=== PATIENT | male | born 1945 | race African-American/Black ===

== ENCOUNTER 2018-08-13 11:56 | Emergency (ER) | payer OTHER ==
[2018-08-13] MEDS ORDERED: Ibuprofen 800 MG TAB ONE (12:41)
== END 2018-08-13 12:46 | disposition home or self-care (01) ==
LOC: ERS 11:56
DX: K40.90 Unilateral inguinal hernia, without obstruction or gangrene, not specified as recurrent (principal); I10 Essential (primary) hypertension; F17.210 Nicotine dependence, cigarettes, uncomplicated; Z79.899 Other long term (current) drug therapy
CPT/HCPCS: 99283

== ENCOUNTER 2018-10-15 15:12 | Observation (INO) | payer MEDICARE, MEDICAID ==
[~2018-10-15 15:12] MED LIST: ISOVUE-370 76%-LOCM 1 ML ONE
--- NOTE | 2018-10-15 15:31 | RAD ---
EXAM: Single view of the chest HISTORY: Chest pain COMPARISON: None FINDINGS: Single view of the chest shows a normal sized cardiomediastinal silhouette. There is no kennedy dence of consolidation, mass, or pleural effusion. The bones are unremarkable. IMPRESSION: No evidence of acute cardiopulmonary disease
[2018-10-15 15:59] LABS: #Eosinphils 0.2 thou/uL (0.0-0.7); #Lymphocytes 2.7 thou/uL (1.20-3.40); #Monocytes 0.7 thou/uL (0.11-0.59); #Neutrophils 3.4 thou/uL (1.40-6.50); %Basophils 0.7 % (0.0-1.0); %Eosinophils 3.2 % (0.0-10.0); %Lymphocytes 37.7 % (21.0-51.0); %Monocytes 10.1 % (0.0-10.0); %Neutrophils 48.4 % (42.0-75.0); Hemoglobin 12.8 g/dL (14.0-18.0); Mean Corpuscular HGB CONC 31.3 g/dL (32.0-36.0); Mean Corpuscular Volume 95.8 fL (78.0-98.0); Mean Platelet Volume 7.8 fL (7.4-10.4); Platelet Count 206 thou/uL (130-400); RBC Distribution Width 12.6 % (11.5-14.5); Red Blood Cell (RBC) Count 4.27 mill/uL (4.70-6.10)
[2018-10-15 16:26] LABS: ALT (SGPT) 18 U/L (8-55); AST (SGOT) 23 U/L (5-34); Albumin 4.7 g/dL (3.4-4.8); Alkaline Phosphatase 77 U/L (40-150); Anion Gap 13 mmol/L (10-20); BUN (Urea Nitrogen) 13 mg/dL (8.4-25.7); Bilirubin, Total 0.8 mg/dL (0.2-1.2); CK (CPK) 264 U/L (30-200); Calc. Creatinine Clearance 0 mL/min (70-130); Calcium 9.8 mg/dL (7.8-10.44); Carbon Dioxide 23 mmol/L (23-31); Chloride 108 mmol/L (98-107); Estimated GFR-MDRD 90; Globulin 2.8 g/dL (2.4-3.5); Glucose 93 mg/dL (83-110); Potassium 4.3 mmol/L (3.5-5.1); Protein, Total 7.5 g/dL (5.8-8.1); Sodium 140 mmol/L (136-145)
[2018-10-15 18:10] LABS: INR-International Normal Ratio 1.1
[2018-10-15 18:11] LABS: PTT 33.3 SEC (22.9-36.1)
[2018-10-15 18:12] LABS: D-Dimer Test 0.45 *mcg/mL (0.27-0.43)
[2018-10-15] MEDS ORDERED: Aspirin Chewable 81 MG TAB ONE (19:47)
[2018-10-15 21:06] LABS: Bilirubin Negative (Negative); Blood, Urine Trace (Negative); Clarity CLOUDY (Clear); Glucose, Urine (Dipstick) Negative (Negative); Leukocyte Small (Negative); Nitrite Positive (Negative); Protein, Urine (Dipstick) Negative (Neg-Trace); Specific Gravity, Urine 1.016 (1.002-1.036); pH, Urine 6.5 (5.0-9.0)
--- NOTE | 2018-10-15 21:07 | CT ---
CTA Angio Chest W WO Con History: Substernal chest pain Comparison: Radiograph same day Findings: CT angiogram chest performed after the intravenous ministration of contrast. 3-D rendering provided. No proximal segmental pulmonary arterial filling defect. Pulmonary trunk size is normal. No pericardi al effusion. Aortic contour is normal. Mild narrowing of the ostia of the celiac trunk. Superior mesenteric artery is patent. There are multiple bilateral renal hypodensities, incompletely evaluated. There is hypertrophy of bot h adrenal glands with a left adrenal adenoma. Mild centrilobular emphysema. No pneumothorax. No effusion. Sternum and manubrium are intact. Remote left eighth and ninth rib fracture. Impression: 1. No pulmonary embolus. 2. Mild emphysema. 3. Multiple renal bilateral hypodensities incompletely evaluated. Nonemergent follow-up ultrasound re commended. 4. No evidence for pneumonia. 5. Adrenal hyperplasia with left adrenal adenoma.
[2018-10-15 21:08] LABS: Bacteria/HPF 4+ HPF (None Seen); Hyaline Casts/LPF 4-6 HYALINE CAST LPF (0-3 Hyaline); Pathc Cast-AUWi Flag 0.27 (0-2.49); RBC/HPF 0-3 HPF (0-3); Squamous Epithelial None Seen HPF (0-3); WBC/HPF 21-50 HPF (0-3)
[2018-10-15] MEDS ORDERED: cefTRIAXone\\ROCEPHIN 1 GM VIAL ONE (22:59)
[2018-10-15 23:18] LABS: Troponin I Less than 0.010 ng/mL (< 0.028)
[2018-10-16] MEDS ORDERED: Ondansetron ODT 4 MG TAB SL PRN (00:20)
[2018-10-16] MEDS ORDERED: Ondansetron PF 4 MG/2 ML Vial IVP PRN (00:20)
[2018-10-16] MEDS ORDERED: Acetaminophen 325 MG TAB PO PRN ×2 (00:20→08:32)
[2018-10-16] MEDS ORDERED: Sodium Chloride 0.9% 1,000 ML IV SCH (00:20)
[2018-10-16 00:28] VITALS: BMI 21.9
[2018-10-16 02:36] LABS: Troponin I Less than 0.010 ng/mL (< 0.028)
[2018-10-16] MEDS ORDERED: Nitroglycerin 0.4 MG TAB (25 Tab Bottle) PO PRN (08:25)
[2018-10-16] MEDS ORDERED: traMADol HCl 50 MG TAB PO PRN (08:31)
[2018-10-16] MEDS ORDERED: hydrALAZINE 20 MG/ML VIAL SLOW IVP PRN (08:32)
--- NOTE | 2018-10-16 12:27 | EKG ---
Test Reason : Blood Pressure : / mmHG Vent. Rate : 072 BPM Atrial Rate : 072 BPM P-R Int : 126 ms QRS Dur : 080 ms QT Int : 396 ms P-R-T Axes : 072 006 034 degrees QTc Int : 433 ms Normal sinus rhythm Possible Left atrial enlargement Septal infarct , age undetermined Abnormal ECG Confirmed by PEGGY FERNANDEZ ([id number]), newspaper or periodical editor PAMELA RODRIGUEZ ([id number]) on 10/16/2018 12:27:01 PM Referred By: Confirmed By:PEGGY FERNANDEZ
--- NOTE | 2018-10-16 12:54 | NM ---
EXAM: NM Cardiac Stress W EF WF PROVIDED CLINICAL HISTORY: Chest pain COMPARISON: None RADIOPHARMACEUTICAL: 33 millicuries technetium 99m labeled sestamibi IV stress 11 millicuries technetium 99m labeled sestamibi IV rest FINDINGS: There is normal, homogeneous distribution of radiotracer throughout the left ventricular myocardium. Gated data demonstrate normal myocardial wall motion and thickening with calculated LVEF 63%. Calculated TID is 1.01. IMPRESSION: 1. No scintigraphic evidence for ischemia. 2. Calculated LVEF 63%.
[2018-10-16] MEDS ORDERED: Rivaroxaban 10 MG TAB PO SCH (13:00)
[2018-10-16 15:50] VITALS: BP 117/59; TEMP 98.3
[2018-10-16] MEDS ORDERED: cefTRIAXone\\ROCEPHIN 1 GM in Sodium Chloride 0.9% 100 ML IVPB SCH (23:00)
--- NOTE | 2018-10-17 07:09 | PDOC.EVN ---
Event Note - Event Note Event Note: H&P dictated on 10/16
--- NOTE | 2018-10-17 15:09 | SS ---
DATE OF ADMISSION: 10/15/2018 DATE OF DISCHARGE: 10/16/2018 PRIMARY CARE: The patient recently moved to [place] from [place]. He is planning to see [facility]. CHIEF COMPLAINT: Chest discomfort. HISTORY OF PRESENT ILLNESS: The patient is a 73-year-old male with hypertension , recent right lower extremity DVT, on Xarelto and ongoing tobacco abuse, presented to the emergency room with above complaints. Over the last 2 days, the patient has left-sided chest discomfort associated with diaphoresis, shortness of breath, and lightheadedness. The pain is intermittent , stabbing without any aggravating or relieving factor. He denies recent immobilization or travel. He is compliant with Xarelto. He denies any orthopnea, paroxysmal nocturnal dyspnea, or leg swelling. No fever or chills reported. He has occasional, which has not changed recently. He also takes NSAIDs on the daily basis. In the emergency room, his EKG showed sinus rhythm without significant ST-T wave changes. CT angiogram of the chest was negative for pulmonary embolism. He received aspirin with 1 g Rocephin in the emergency room for UTI. PAST MEDICAL HISTORY: 1. Hypertension. 2. Right lower extremity DVT, diagnosed 2 months ago, on Xarelto. 3. Ongoing tobacco abuse. PAST SURGICAL HISTORY: 1. Hernia surgery x2. 2. Left rotator cuff surgery. 3. Right cataract surgery. 4. Appendectomy. ALLERGIES: NO KNOWN DRUG ALLERGIES. CURRENT HOME MEDICATIONS: 1. Ibuprofen as needed. 2. Toprol-XL 50 mg daily. 3. Xarelto 10 mg daily. 4. Tramadol as needed. SOCIAL HISTORY: The patient smokes up to 6 cigarettes a day. No drug use. He drinks alcohol socially. FAMILY HISTORY: Mother had unknown cancer. He is unable to recall any heart disease in his family. REVIEW OF SYSTEMS: All other review of systems was reviewed and were found negative. PHYSICAL EXAMINATION: VITAL SIGNS: Temperature 98.9, respirations of 18, blood pressure 123/59, pulse rate of 71, and O2 saturation 99% on room air. GENERAL: A 73-year-old male, in no apparent distress. No chest pain at this time. HEENT: Head; atraumatic and normocephalic. Sclerae are anicteric. Moist mucous membranes. No oral lesion. NECK: Supple. No JVD appreciated. No carotid bruit. LUNGS: Clear to auscultation bilaterally. No wheezing, rales, or rhonchi. HEART: S1 and S2 present. Regular rate and rhythm. No heaves or pulsation. There is questionable 2/6 systolic murmur over the mitral area. ABDOMEN: Soft and nontender. Bowel sounds present. No rebound or guarding. No costovertebral angle tenderness. EXTREMITIES: No edema or calf tenderness. NEUROLOGIC: Grossly nonfocal. Moves all 4 extremities. PSYCHIATRY: Alert, awake, and oriented x3. Normal affect. PERIPHERAL VASCULAR: Radial pulses palpable bilaterally. MUSCULOSKELETAL: No joint swelling or tenderness. LABORATORY FINDINGS: Troponin was negative. Hemoglobin 12.8, hematocrit 40.9. Urinalysis showed 21 to 50 wbc's with 4+ bacteria. BUN 13, creatinine 0.98. CT angiogram of the chest by my review was negative for pulmonary embolism. It showed mild renal bilateral hypodensity, incompletely evaluated. Followup ultrasound is recommended. He also had adrenal hyperplasia with left adrenal adenoma. Chest x-ray by my review was negative for infiltrate or edema. EKG by my review was negative for ST-T wave changes. It showed normal sinus rhythm. IMPRESSION: 1. Chest discomfort, rule out acute coronary syndrome. 2. Exertional dyspnea over the past 2 months per the patient report. 3. Ongoing tobacco abuse. 4. Hypertension. 5. Chronic mild anemia. 6. Urinary tract infection. 7. Adrenal hyperplasia with left adrenal adenoma. Primary care physician advised to follow. 8. Multiple renal bilateral hypodensities. Renal ultrasound as outpatient is recommended. PLAN: The patient will be monitored in the telemetry unit. Serial troponins have been negative. His chest pain is somewhat suspicious for coronary artery disease. His CT chest showed some changes of emphysema as well. Tobacco cessation was emphasized. PPIs will be added. Due to intermediate probability for coronary artery disease, we will get a Cardiolite stress test done during this hospitalization. It would be resumed after the stress test. We will continue Toprol-XL from this afternoon. Lifestyle modification was emphasized. He was advised to follow up with his primary care for renal ultrasound as well as further workup for adrenal hyperplasia and left adrenal adenoma. Urine culture will be added. IV ceftriaxone will be started. Plan of care was discussed with the patient in detail. He stated understanding. The patient will be stable for discharge if the stress test is negative. He will follow up with his primary care physician on urine cultures. Antibiotics will be switched to oral. He was advised to discontinue NSAIDs. UPDATE: Patient underwent stress test that was negative for reversible ischemia. He was discharged on oral antibiotics. GI follow up requested. Tobacco cessation was emphasized. Job ID: [id number] [facility]
--- NOTE | 2018-10-18 11:35 | STRESS ---
Acquisition Time: 2018-10-16 10:55:43 Total Exercise Time: 00:08:59 Test Indications: CHEST PAIN Medications: Protocol: CADENCE Max HR: 136 BPM 93% of Pred: 145 BPM Max BP: 164/080 mmHG Max Work Load: 10.1 METS RESTING ECG: NORMAL SINUS RHYTHM SYMPTOMS: DYSPNEA ON EXERTION NORMAL BP RESPONSE ECTOPY: NONE ECG STRESS: NO SIGNIFICANT CHANGES INTERPRETATION: NEGATIVE GXT/AWAIT NUCLEAR IMAGES FOR DEFINITIVE DIAGNOSIS COMMENTS: EXERCISED FOR 8 MINUTES, [id number] Confirmed by DIOGENES AYERS ([id number]), editor managing director OLESYA GAY ([id number]) on 10/18/2018 11:35:08 AM Referred By: MD Jay LANE Confirmed By:DIOGENES AYERS
== END 2018-10-16 17:48 | disposition home or self-care (01) ==
LOC: ERS 15:12 → 2SW 21:44
PROVIDERS: ADMIT Hospitalist; ATTEND Hospitalist
DX: R07.89 Other chest pain (principal); R06.00 Dyspnea, unspecified; F17.210 Nicotine dependence, cigarettes, uncomplicated; I10 Essential (primary) hypertension; D64.9 Anemia, unspecified; N39.0 Urinary tract infection, site not specified; D35.02 Benign neoplasm of left adrenal gland; N28.89 Other specified disorders of kidney and ureter; I82.401 Acute embolism and thrombosis of unspecified deep veins of right lower extremity; Z98.890 Other specified postprocedural states; Z79.01 Long term (current) use of anticoagulants; Z79.899 Other long term (current) drug therapy
CPT/HCPCS: 71045; 71275; 78452; 80053; 82550; 84484 ×3; 85025; 85379; 85610; 85730; 87077; 87086; 87186; 93005; 93017; 94760; 96361; 96365; 99285; A9500; G0378 ×2; 36415; 81003; 81015; J0696; Q9966

== ENCOUNTER 2019-03-19 22:21 | Emergency (ER) | payer MEDICARE, MEDICAID ==
[2019-03-19] MEDS ORDERED: Aspirin Chewable 81 MG TAB ONE (23:11)
--- NOTE | 2019-03-19 23:14 | RAD ---
XR Chest 1 View Portable History: Chest pain Comparison: Radiograph October 15, 2018 Findings: Old left rib fracture. Lungs are clear. No pneumothorax. No effusion. Left distal clavicula r osteolysis. Impression: No acute intrathoracic abnormality.
[2019-03-19 23:29] LABS: #Basophils 0.1 thou/uL (0.0-0.2); #Eosinphils 0.4 thou/uL (0.0-0.7); #Lymphocytes 2.5 thou/uL (1.20-3.40); #Monocytes 0.8 thou/uL (0.11-0.59); #Neutrophils 3.3 thou/uL (1.40-6.50); %Basophils 1.3 % (0.0-1.0); %Eosinophils 5.3 % (0.0-10.0); %Lymphocytes 35.3 % (21.0-51.0); %Monocytes 11.6 % (0.0-10.0); %Neutrophils 46.5 % (42.0-75.0); Hemoglobin 12.7 g/dL (14.0-18.0); Mean Corpuscular Hemoglobin 30.3 pg (27.0-31.0); Mean Corpuscular Volume 94.8 fL (78.0-98.0); Mean Platelet Volume 8.1 fL (7.4-10.4); Platelet Count 207 thou/uL (130-400); RBC Distribution Width 12.1 % (11.5-14.5); Red Blood Cell (RBC) Count 4.17 mill/uL (4.70-6.10); White Blood Cell (WBC) Count 7.2 thou/uL (4.8-10.8)
[2019-03-19 23:53] LABS: ALT (SGPT) 36 U/L (8-55); AST (SGOT) 32 U/L (5-34); Albumin 4.5 g/dL (3.4-4.8); Alkaline Phosphatase 81 U/L (40-110); Anion Gap 14 mmol/L (10-20); BUN (Urea Nitrogen) 16 mg/dL (8.4-25.7); Bilirubin, Total 0.5 mg/dL (0.2-1.2); Calc. Creatinine Clearance 0 mL/min (70-130); Calcium 9.8 mg/dL (7.8-10.44); Carbon Dioxide 26 mmol/L (23-31); Chloride 105 mmol/L (98-107); Estimated GFR-MDRD 76; Globulin 3.1 g/dL (2.4-3.5); Glucose 95 mg/dL (83-110); Lipase 40 U/L (8-78); Potassium 4.3 mmol/L (3.5-5.1); Protein, Total 7.6 g/dL (5.8-8.1); Sodium 141 mmol/L (136-145)
== END 2019-03-20 00:22 | disposition home or self-care (01) ==
LOC: ERS 22:21
DX: J44.1 Chronic obstructive pulmonary disease with (acute) exacerbation (principal); F17.210 Nicotine dependence, cigarettes, uncomplicated; F32.9 Major depressive disorder, single episode, unspecified; I10 Essential (primary) hypertension; E78.5 Hyperlipidemia, unspecified
CPT/HCPCS: 36415; 71045; 80053; 83690; 84484; 85025; 85379; 87804; 93005

== ENCOUNTER 2021-09-13 09:38 | Emergency (ER) | payer MEDICARE, MEDICAID ==
[2021-09-13 10:46] LABS: #Basophils 0.1 thou/uL (0.0-0.2); #Eosinphils 0.2 thou/uL (0.0-0.7); #Lymphocytes 2.4 thou/uL (1.20-3.40); #Monocytes 0.6 thou/uL (0.11-0.59); #Neutrophils 3.6 thou/uL (1.40-6.50); %Basophils 1.1 % (0.0-1.0); %Eosinophils 3.3 % (0.0-10.0); %Monocytes 9.2 % (0.0-10.0); %Neutrophils 51.5 % (42.0-75.0); Mean Corpuscular HGB CONC 30.9 g/dL (32.0-36.0); Mean Corpuscular Hemoglobin 30.5 pg (27.0-31.0); Mean Corpuscular Volume 98.7 fL (78.0-98.0); Mean Platelet Volume 7.9 fL (7.4-10.4); Platelet Count 200 thou/uL (130-400); RBC Distribution Width 12.6 % (11.5-14.5); Red Blood Cell (RBC) Count 4.25 mill/uL (4.70-6.10); White Blood Cell (WBC) Count 6.9 thou/uL (4.8-10.8)
[2021-09-13 11:05] LABS: ALT (SGPT) 21 U/L (8-55); AST (SGOT) 25 U/L (5-34); Albumin 4.5 g/dL (3.4-4.8); Alkaline Phosphatase 68 U/L (40-110); Anion Gap 13 mmol/L (10-20); BUN (Urea Nitrogen) 12 mg/dL (8.4-25.7); Bilirubin, Total 0.8 mg/dL (0.2-1.2); Calc. Creatinine Clearance 0 mL/min (70-130); Calcium 9.7 mg/dL (7.8-10.44); Carbon Dioxide 26 mmol/L (23-31); Chloride 106 mmol/L (98-107); Globulin 3.5 g/dL (2.4-3.5); Glucose 86 mg/dL (83-110); Lipase 48 U/L (8-78); Potassium 4.4 mmol/L (3.5-5.1); Sodium 141 mmol/L (136-145)
[2021-09-13 11:37] LABS: Bacteria/HPF 4+ HPF (None Seen); Bilirubin Negative (Negative); Blood, Urine Negative (Negative); Clarity Cloudy (Clear); Glucose, Urine (Dipstick) Normal (Negative); Ketone, Urine Negative (Negative); Leukocyte 75 Leu/uL (Negative); Nitrite 2+ (Negative); Protein, Urine (Dipstick) Negative (Neg-Trace); RBC/HPF 0-3 HPF (0-3); Specific Gravity, Urine 1.019 (1.002-1.036); Squamous Epithelial None Seen HPF (0-3); Urobilinogen Normal mg/dL (Less than 2)
[2021-09-13] MEDS ORDERED: Iopamidol 370 76% 100 ML VIAL ONE (11:54)
== END 2021-09-13 13:15 | disposition home or self-care (01) ==
LOC: ERS 09:38
DX: R10.30 Lower abdominal pain, unspecified (principal); N39.0 Urinary tract infection, site not specified; N28.1 Cyst of kidney, acquired; I10 Essential (primary) hypertension; E78.5 Hyperlipidemia, unspecified; F17.210 Nicotine dependence, cigarettes, uncomplicated; Z79.899 Other long term (current) drug therapy
CPT/HCPCS: 36415; 74177; 80053; 81003; 81015; 83690; 85025; 87077; 87086; 87186; 93005

== ENCOUNTER 2022-05-30 12:54 | Outpatient (CLI) | payer OTHER ==
[2022-05-30 13:55] LABS: Bilirubin Neg (Negative); Blood, Urine 25 (Negative); Clarity Slightly Cloudy (Clear); Glucose, Urine (Dipstick) Normal (Negative); Ketone, Urine 50 mg/dL (Negative); Leukocyte 100 (Negative); Nitrite Positive (Negative); Protein, Urine (Dipstick) 15 mg/dl (Neg-Trace); Specific Gravity, Urine 1.025 (1.005-1.030); Urobilinogen Normal mg/dL (Less than 2)
[2022-05-30 13:57] LABS: Hemoglobin 12.8 g/dL (13.5-17.5); Mean Corpuscular HGB CONC 32.4 g/dL (32.0-36.0); Mean Corpuscular Hemoglobin 30.1 pg (27.0-33.0); Mean Corpuscular Volume 92.9 fl (81.2-95.1); Mean Platelet Volume 10.1 fl (7.4-10.4); Platelet Count 197 10x3/uL (150-450); RBC Distribution Width 12.8 % (11.5-14.5); Red Blood Cell (RBC) Count 4.25 10x6/uL (4.32-5.72); White Blood Cell (WBC) Count 5.5 10x3/uL (3.5-10.5)
[2022-05-30 14:08] LABS: RBC/HPF 0-3 HPF (0-3)
[2022-05-30 14:09] LABS: Anion Gap 15 mmol/L (10-20); BUN (Urea Nitrogen) 18 mg/dL (8.4-25.7); Bacteria/HPF 3+ HPF (None Seen); Calc. Creatinine Clearance 0 mL/min (70-130); Calcium 9.8 mg/dL (7.8-10.44); Carbon Dioxide 23 mmol/L (23-31); Chloride 107 mmol/L (98-107); Estimated GFR 52; Glucose 87 mg/dL (83-110); Potassium 3.7 mmol/L (3.5-5.1); Sodium 141 mmol/L (136-145); Squamous Epithelial 0-3 HPF (0-3)
[2022-05-30 14:12] LABS: PTT 28.5 sec (22.0-33.0); Prothrombin Time 11.1 sec (9.5-12.1)
== END 2022-05-30 12:55 | disposition home or self-care (01) ==
LOC: LABBT 12:54
PROVIDERS: ATTEND Urology
DX: Z01.818 Encounter for other preprocedural examination (principal); N40.1 Benign prostatic hyperplasia with lower urinary tract symptoms; R39.14 Feeling of incomplete bladder emptying; R35.0 Frequency of micturition; R10.2 Pelvic and perineal pain
CPT/HCPCS: 80048; 81001; 85027; 85610; 85730; 87077; 87086; 87186; 93005; 93010

== ENCOUNTER 2022-06-06 10:10 | Day surgery (SDC) | payer OTHER ==
[2022-06-05 09:43] VITALS: BMI 22.6
[2022-06-06] MEDS ORDERED: Iopamidol 0 ML ONE (14:45)
[2022-06-06] MEDS ORDERED: Levofloxacin 500 mg/D5W 100 ml Premix Bag ONE (15:01)
[2022-06-06] MEDS ORDERED: Fentanyl 100 MCG/2 ML VIAL ONE (15:03)
[2022-06-06] MEDS ORDERED: PROPOFOL 200 MG/20 ML VIAL ONE (15:28)
[2022-06-06] MEDS ORDERED: Lidocaine 1% PF 5 ML VIAL ONE (15:28)
[2022-06-06] MEDS ORDERED: Dexamethasone 20 MG/5 ML VIAL ONE (15:28)
[2022-06-06] MEDS ORDERED: Ondansetron PF 4 MG/2 ML Vial ONE (15:28)
[2022-06-06] MEDS ORDERED: fentaNYL PF 100 MCG/2 ML SYRINGE ONE (15:46)
[2022-06-06] MEDS ORDERED: Oxybutynin 5 MG TAB ONE (17:09)
[2022-06-06] MEDS ORDERED: Phenazopyridine HCl 100 MG TAB ONE (17:09)
== END 2022-06-06 18:13 | disposition home or self-care (01) ==
LOC: SDC 10:10
PROVIDERS: ATTEND Urology
PROC: 0VT08ZZ Resection of Prostate, Via Natural or Artificial Opening Endoscopic (ICD-10-PCS; principal; 2022-06-06)
DX: N40.1 Benign prostatic hyperplasia with lower urinary tract symptoms (principal); N13.8 Other obstructive and reflux uropathy; R39.14 Feeling of incomplete bladder emptying; R35.0 Frequency of micturition; M19.90 Unspecified osteoarthritis, unspecified site; E78.00 Pure hypercholesterolemia, unspecified; I10 Essential (primary) hypertension; F17.210 Nicotine dependence, cigarettes, uncomplicated; Z79.2 Long term (current) use of antibiotics
CPT/HCPCS: J1100; J1956; J2405; J2704; J3010; Q9967

== ENCOUNTER 2023-09-29 11:05 | Emergency (ER) | payer OTHER, SELFPAY ==
[2023-09-29 12:45] LABS: #Basophils Less than 0.03 10x3/uL (0.0-0.2); %Basophils 0.3 % (0.0-1.0); %Eosinophils 1.6 % (0.0-10.0); %Lymphocytes 35.8 % (21.0-51.0); %Monocytes 9.2 % (0.0-10.0); %Neutrophils 52.9 % (42.0-75.0); Hematocrit 38.5 % (42.0-52.0); Hemoglobin 12.1 g/dL (14.0-18.0); Mean Corpuscular HGB CONC 31.4 g/dL (32.0-36.0); Mean Corpuscular Volume 95.3 fL (78.0-98.0); Mean Platelet Volume 10.6 fL (7.4-10.4); Platelet Count 183 10x3/uL (130-400); RBC Distribution Width 13.1 % (11.5-14.5); Red Blood Cell (RBC) Count 4.04 mill/uL (4.70-6.10)
[2023-09-29 13:03] LABS: Troponin I Less than 0.010 ng/mL (< 0.028)
[2023-09-29 13:56] LABS: ALT (SGPT) 19 U/L (8-55); AST (SGOT) 44 U/L (5-34); Albumin 4.5 g/dL (3.4-4.8); Alkaline Phosphatase 57 U/L (40-110); Anion Gap 18 mmol/L (10-20); BUN (Urea Nitrogen) 23 mg/dL (8.4-25.7); Bilirubin, Total 0.9 mg/dL (0.2-1.2); Calc. Creatinine Clearance 0 mL/min (70-130); Calcium 10.1 mg/dL (7.8-10.44); Carbon Dioxide 20 mmol/L (23-31); Chloride 107 mmol/L (98-107); Estimated GFR 67; Globulin 3.6 g/dL (2.4-3.5); Glucose 83 mg/dL (83-110); Magnesium 2.4 mg/dL (1.6-2.6); Potassium 4.4 mmol/L (3.5-5.1); Protein, Total 8.1 g/dL (5.8-8.1); Sodium 141 mmol/L (136-145)
== END 2023-09-29 14:23 | disposition home or self-care (01) ==
LOC: ERS 11:05
DX: R55 Syncope and collapse (principal); I10 Essential (primary) hypertension; F17.210 Nicotine dependence, cigarettes, uncomplicated
CPT/HCPCS: 71045; 80053; 83735; 84484; 85025; 93005; 96360